=== PATIENT | male | born 1995 | race Caucasian/White ===

== ENCOUNTER 2017-01-06 00:15 | Emergency (ER) | payer OTHER ==
[2017-01-06 00:20] VITALS: RESP 16
--- NOTE | 2017-01-06 00:26 | EDPHY ---
H & P Stated Complaint: Etoh HPI/ROS: HPI CHIEF COMPLAINT: Alcohol Intoxication HISTORY OF PRESENT ILLNESS: Patient 21-year-old male otherwise healthy no significant medical history presents by EMS for being acutely intoxicated with alcohol. Patient admits drinking large amount of alcohol this evening. It Is unclear exactly when he drinks he says multiple shots of liquor. Denies drugs or trauma heaving. Upon arrival here to the emergency room is slurring speech she has an ataxic gait, smells of alcohol, is noted to be tachycardic Past Medical History: No medical history Past Surgical History: No surgical history Social History: Admits to large amount of alcohol this evening. Denies illicit drugs or tobacco. Family History: Noncontributory ROS REVIEW OF SYSTEMS: A comprehensive 10 point review of systems is otherwise negative aside from elements mentioned in the history of present illness. Exam Constitutional Intoxicated, triage nursing summary reviewed, vital signs reviewed, Sleepy, smells of alcohol Eyes normal conjunctivae and sclera, horizontal beating nystagmus consistent acute alcohol intoxication, otherwise pupils equal and react to light HENT normal inspection, atraumatic, moist mucus membranes, no epistaxis, neck supple/ no meningismus, no raccoon eyes. Respiratory clear to auscultation bilaterally, normal breath sounds, no respiratory distress, no wheezing. Cardiovascular rate normal, regular rhythm, no murmur, no edema, distal pulses normal. Gastrointestinal soft, non-tender, no rebound, no guarding, normal bowel sounds, no distension, no pulsatile mass. Genitourinary no CVA tenderness. Musculoskeletal no midline vertebral tenderness, full range of motion, no calf swelling, no tenderness of extremities, no meningismus, good pulses, neurovascularly intact. Skin pink, warm, & dry, no rash, skin atraumatic. Neurologic sleepy, intoxicated with alcohol,, alert and oriented x 3, AAOx3, moves all 4 extremities equally, motor intact, sensory intact, CN II-XII intact , , normal vision, normal speech. Psychiatric normal mood/affect. Heme/Lymph/Immune no lymphadenopathy. Differential Diagnosis: Includes but is not limited to in a particular order acute alcohol intoxication, alcohol abuse, dehydration, electrolyte abnormality , nausea vomiting from acute alcohol intoxication Medical Decision Making: Plan for this patient IV fluid bolus, IV Zofran for nausea check serum alcohol level. Re-evaluation: [id number]: The patient up ambulatory stable gait. Clinically more sober. Safe for discharge to the arc. Source: Patient - Personal History Current Tetanus/Diphtheria Vaccine: Yes Current Tetanus Diphtheria and Acellular Pertussis (TDAP): Yes Tetanus Vaccine Date: < 10 years - Medical/Surgical History Hx Asthma: No Hx Chronic Respiratory Disease: No Hx Diabetes: No Hx Cardiac Disease: No Hx Renal Disease: No Hx Cirrhosis: No Hx Alcoholism: No Hx HIV/AIDS: No Hx Splenectomy or Spleen Trauma: No Other PMH: none - Social History Smoking Status: Never smoked Constitutional: Initial Vital Signs Temperature (C) 37.0 C 01/06/17 00:19 Heart Rate 127 H 01/06/17 00:19 Respiratory Rate 16 01/06/17 00:19 Blood Pressure 143/89 H 01/06/17 00:19 O2 Sat (%) 94 01/06/17 00:19 O2 Delivery Mode Room Air Allergies/Adverse Reactions: No Known Allergies Allergy (Unverified 01/06/17 00:19) Home Medications: Medication Instructions Recorded NK [No Known Home Meds] 01/06/17 Medical Decision Making - Data Points Laboratory Results: 01/06/17 00:10 Ethyl Alcohol 413 mg/dL H* mg/dL (0-10) Medications Given: Discontinued Medications Sodium Chloride (Ns) 1,000 mls @ 0 mls/hr IV ONCE ONE PRN Reason: Wide Open Stop: 01/06/17 00:32 Last Admin: 01/06/17 00:34 Dose: 1,000 mls Sodium Chloride (Ns) 1,000 mls @ 0 mls/hr IV ONCE ONE PRN Reason: Wide Open Stop: 01/06/17 01:31 Last Admin: 01/06/17 01:30 Dose: 1,000 mls Ondansetron HCl (Zofran) 4 mg IVP EDNOW ONE Stop: 01/06/17 00:34 Last Admin: 01/06/17 00:38 Dose: 4 mg Departure - Departure Disposition: Home, Routine, Self-Care Clinical Impression: Alcoholic intoxication Qualifiers: Complication of substance-induced condition: uncomplicated Qualified Code(s): F10.920 - Alcohol use, unspecified with intoxication, uncomplicated Condition: Good Instructions: Alcohol Intoxication (ED), Abuse of Alcohol (ED) Referrals: Patient,NotPresent [Unknown] - As per Instructions
[2017-01-06] MEDS ORDERED: NS 1,000 ML IV ONE ×2 (00:31→01:30)
[2017-01-06] MEDS ORDERED: ONDANSETRON 4 MG/2 ML VIAL IVP ONE (00:33)
[2017-01-06] MEDS ORDERED: IPRATROPIUM/ALBUTEROL 3 ML DEYVIAL ONE ×2 (00:39)
[2017-01-06 01:19] LABS: ETHANOL SERUM 413 mg/dL (0-10)
[2017-01-06 03:23] VITALS: BP 156/90; PULSE 102; TEMP 98.1; O2SAT 93
== END 2017-01-06 03:33 | disposition home or self-care (01) ==
LOC: EDUNIT#
DX: F10.920 Alcohol use, unspecified with intoxication, uncomplicated (principal)
CPT/HCPCS: 96374; G0480; J2405